=== PATIENT | male | born 2000 | race Caucasian/White ===

== ENCOUNTER 2018-05-21 14:02 | Emergency (ER) | payer OTHER ==
--- NOTE | 2018-05-21 14:56 | EDPHY ---
General Time Seen by Provider: 05/21/18 14:38 Narrative: CHIEF COMPLAINT: Infected ingrown hair HISTORY OF PRESENT ILLNESS: Patient presents by private vehicle with complaints of infected ingrown hair. He states that approximately 8 days ago he noticed a suspected ingrown hair just above the penis. He was seen at [facility] at 6 days ago , when they prescribed him Bactrim and Keflex. He has been taking Bactrim 1 pill by mouth twice daily. He is taking Keflex 4 times daily. He says the symptoms have worsened it has now become quite painful. At 2:00 a.m. He awoke with some severe pain and spontaneous drainage from the site. He has no penile pain. No scrotal or testicular pain. No fever. No redness surrounding the genitalia. No difficulty urinating. Does report frequent acne, for which he takes doxycycline and clindamycin periodically. No other associated complaints or modifying factors. TETANUS STATUS: Up-to-date MEDICAL/SURGICAL/SOCIAL HISTORY: Recurrent acne REVIEW OF SYSTEMS: Ten systems reviewed and are negative unless otherwise noted in the HPI EXAMINATION General Appearance: Alert, no distress Head: normocephalic, atraumatic Cardiovascular: Pulses normal throughout. Brisk cap refill Neurological: A&O, sensory symmetric, strength symmetric : Circumcised penis without any drainage or erythema of the penis. There is no scrotal tenderness or erythema. No crepitus or necrosis of the scrotum or perineum. Skin: Warm and dry. There is a small area, 1.5 cm x 1.5 cm abscess to the suprapubic skin just above the penis. There is fluctuance of this. No involvement of the penis. There is mild spontaneous drainage. Minimal induration. No surrounding fluctuance, erythema or systemic cellulitis. Extremities: Nontender, no pedal edema DIFFERENTIAL DIAGNOSES: Including but not limited to folliculitis, abscess, cellulitis, MRSA MDM: 2:40 p.m. Suprapubic abscess from likely ingrown hair folliculitis. There is no evidence of Armaan gangrene or penile abnormality. There is no systemic cellulitis or systemic infection. I do feel that he warrants incision and drainage as he has been on antibiotics and does have fluctuance at the site. He has verbally consented to incision and drainage. I prepped the site and administered anesthesia. 3:12 p.m. Abscess has been drained without difficulty. I did express 5 mL of purulence. There is no cellulitis of the surrounding area. No testicular complaints. No cellulitis, gangrene or crepitus to the scrotum or perineum. This is a localized area of infection. PROCEDURE: Incision and Drainage Consent: Verbal Location: Suprapubic skin Length: 1.5 cm x 1.5 Complexity: Simple Anesthesia: Local. 0.5% Marcaine with epinephrine. 10 mL Procedure description: After time-out and good anesthesia, the area was prepped with chlorhexidine x2. Using common sterile procedure, I made an incision with a number 15 blade measuring 1.5 cm. Blunt dissection was carried out to break up loculations. There was expression of 5 mL purulence. Minimal serosanguineous loss. No bleeding. No foreign body. I did not place any packing. Expressed: 5 mL purulent. Less than 2 most serosanguineous. Wound care: Keep the wound covered while showering for the next 3 days. No exposure to swimming pools, hot tubs or outside water. Dressing changes daily. Follow-up: Follow-up with wound healing center or here in 48 hr for wound check. SUPERVISION: This patient was independently evaluated without direct involvement of or examination by the attending physician. ED Precautions: Worsening pain. Erythema, edema, cyanosis, pallor, paresthesia or anesthesia. - History Smoking Status: Never smoked - Objective Vital Signs: Initial Vital Signs Temperature (C) 98.4 F 05/21/18 14:24 Heart Rate 79 05/21/18 14:24 Respiratory Rate 18 05/21/18 14:24 Blood Pressure 100/76 05/21/18 14:24 O2 Sat (%) 95 05/21/18 14:24 O2 Delivery Mode Room Air Allergies/Adverse Reactions: No Known Allergies Allergy (Unverified 05/21/18 14:23) Home Medications: Medication Instructions Recorded Doxycycline Hyclate 05/21/18 Mupirocin 2% [Bactroban 2% Nasal 1 deirdre NASAL BID #1 tube 05/21/18 (RX)] Mupirocin 2% [Bactroban 2%] 1 deirdre TP BID #1 tube 05/21/18 Sulfamethox/Tmp 800/160 mg 2 tab PO BID 10 Days tab 05/21/18 [Bactrim Ds] oxyCODONE HCL/ACETAMINOPHEN 1 each PO Q4-6PRN PRN #7 tablet 05/21/18 [Percocet 5-325 mg Tablet] Departure - Departure Disposition: Home, Routine, Self-Care Clinical Impression: Abscess of suprapubic region Condition: Good Instructions: Abscess (ED), Abscess Follow-up (ED), Warm Compress or Soak (ED) Additional Instructions: 1. Warm compresses to the affected area 4 times daily 2. Keep the wound covered while showering for the next 3 days 3. Increase Bactrim to 2 pills by mouth twice daily for an additional 7 days 4. Continue Keflex 4 times daily as prescribed 5. I have written you for intranasal Bactroban. Please administer this as prescribed 6. I have written you for topical Bactroban. Do not apply this to the current wound. He needs this for future wounds 7. Contact the wound healing center for definitive care 8. Return here for any worsening symptoms, penile or scrotal tenderness, redness or warmth, fever Referrals: [facility] [Clinic] - As per Instructions [facility] [Clinic] - As per Instructions Physician,Emergency Dept, [Medical Doctor] - As per Instructions (Penile pain , testicular pain, scrotal pain, redness of the genitalia or skin just behind genitalia, fever) Stand Alone Forms: School Excuse Prescriptions: Mupirocin 2% [Bactroban 2%] 1 deirdre TP BID #1 tube Mupirocin 2% [Bactroban 2% Nasal (RX)] 1 deirdre NASAL BID #1 tube oxyCODONE HCL/ACETAMINOPHEN [Percocet 5-325 mg Tablet] 1 each PO Q4-6PRN PRN #7 tablet PRN Reason: Pain, Breakthrough Sulfamethox/Tmp 800/160 mg [Bactrim Ds] 2 tab PO BID 10 Days tab
[2018-05-21 15:38] VITALS: BP 119/72
== END 2018-05-21 15:38 | disposition home or self-care (01) ==
PROC: 0H9AXZZ Drainage of Inguinal Skin, External Approach (ICD-10-PCS; principal; 2018-05-21)
DX: L02.215 Cutaneous abscess of perineum (principal)

== ENCOUNTER 2018-11-12 13:26 | Emergency (ER) | payer BC, OTHER ==
--- NOTE | 2018-11-12 15:11 | EDPHY ---
H & P Stated Complaint: passed out after hot tubbing 11/08, fatigued, migraine Time Seen by Provider: 11/12/18 15:11 HPI/ROS: CHIEF COMPLAINT: Persistent headache after syncopal event HISTORY OF PRESENT ILLNESS: The patient presents the ED with complaints of upper central frontal headache following a syncopal event which occurred several days ago. The patient reportedly fell and struck his head on concrete. He has had a headache since the fall. Given the persistence of his symptoms he sought care at urgent care and was referred to the ED for further evaluation. The patient denies any neck pain. He denies any antecedent chest pain or palpitations. The patient denies any additional traumatic injury. The patient has no prior history of syncope. REVIEW OF SYSTEMS: A comprehensive 10 point review of systems is otherwise negative aside from elements mentioned in the history of present illness. Source: Patient Exam Limitations: No limitations - Personal History Current Tetanus/Diphtheria Vaccine: Yes Current Tetanus Diphtheria and Acellular Pertussis (TDAP): Yes - Medical/Surgical History Hx Asthma: No Hx Chronic Respiratory Disease: No Hx Diabetes: No Hx Cardiac Disease: No Hx Renal Disease: No Hx Cirrhosis: No Hx Alcoholism: No Hx HIV/AIDS: No Hx Splenectomy or Spleen Trauma: No Other PMH: denies - Social History Smoking Status: Never smoked - Physical Exam Exam: General Appearance: Alert, no distress Head: Atraumatic Eyes: Pupils equal, round, reactive ENT, Mouth: No hemotympanum, no oral trauma Neck: Nontender, trachea midline Respiratory: No chest wall tender, subcutaneous air, lungs clear bilaterally Cardiovascular: Regular rate and rhythm Abdomen: Abdomen is soft and nontender, pelvis stable Skin: No lacerations, No abrasion Back: No midline T/L/S pain Extremities: Nontender, full range of motion Neurological: A&Ox3, normal motor function, normal sensory exam Constitutional: Initial Vital Signs Temperature (C) 36.5 C 11/12/18 13:43 Heart Rate 74 11/12/18 13:43 Respiratory Rate 16 11/12/18 13:43 Blood Pressure 104/66 11/12/18 13:43 O2 Sat (%) 99 11/12/18 13:43 O2 Delivery Mode Room Air Allergies/Adverse Reactions: No Known Allergies Allergy (Unverified 05/21/18 14:23) Home Medications: Medication Instructions Recorded Doxycycline Hyclate 05/21/18 Mupirocin 2% [Bactroban 2% Nasal 1 deirdre NASAL BID #1 tube 05/21/18 (RX)] Mupirocin 2% [Bactroban 2%] 1 deirdre TP BID #1 tube 05/21/18 Sulfamethox/Tmp 800/160 mg 2 tab PO BID 10 Days tab 05/21/18 [Bactrim Ds] oxyCODONE HCL/ACETAMINOPHEN 1 each PO Q4-6PRN PRN #7 tablet 05/21/18 [Percocet 5-325 mg Tablet] Medical Decision Making - Diagnostics Imaging Results: Imaging Impressions Head CT 11/12/18 15:17 Impression: Possible subtle left isointense subdural hematoma. Recommend noncontrast MRI for further evaluation. Results called to Dr. Bob James at 4:11 PM General information for patients regarding this examination can be found at [email or web address]. If you have questions or comments about this report, please contact me at (hospital) or [phone] (cell). ED Course/Re-evaluation: Patient presents the ED with a persistent headache 3 days following a traumatic fall. Given the severity of his headache which the patient reports his an 8/10 and history of trauma with a ground fall onto concrete a CT scan of the head has been ordered to evaluate for intracranial hemorrhage. CT scan of the brain demonstrates the possibility of an equivocal 5 mm subdural hematoma per the radiologist. I am unable to appreciate personally. I consulted with Dr. Handley from Neurosurgery who also was unable to appreciate this finding on review of the CT scan. None the less the patient is young healthy not anticoagulated had an injury 3 days ago and has a normal neurologic examination. This would be expected to not be a surgical intervention even if it is present. The patient will be discharged home with customary head injury aftercare instructions. He is given the number of our on-call concussion specialist. Differential Diagnosis: Differential diagnosis considered includes skull fracture, concussion, intracranial hemorrhage, migraine headache - Data Points Medications Given: Discontinued Medications Ibuprofen (Motrin) 600 mg PO EDNOW ONE Stop: 11/12/18 15:18 Last Admin: 11/12/18 15:19 Dose: 600 mg Departure - Departure Disposition: Home, Routine, Self-Care Clinical Impression: Concussion Condition: Good Instructions: Concussion (ED) Additional Instructions: 1. Take Ibuprofen or Motrin 600 mg by mouth three times a day. 2. Please return to the ED for markedly worsening symptoms or other concerns. 3. Please follow up with the concussion specialist you have been referred to. Referrals: Zoë Lloyd MD [Medical Doctor] - As per Instructions
[2018-11-12] MEDS ORDERED: IBUPROFEN 600 MG TAB PO ONE (15:17)
[2018-11-12 16:34] VITALS: BP 111/74
== END 2018-11-12 16:37 | disposition home or self-care (01) ==
DX: S06.0X0A Concussion without loss of consciousness, initial encounter (principal); W01.198A Fall on same level from slipping, tripping and stumbling with subsequent striking against other object, initial encounter; Y92.89 Other specified places as the place of occurrence of the external cause